=== PATIENT | female | born 1990 | race Two or more races ===

== ENCOUNTER 2024-01-03 09:08 | Outpatient (CLI) | payer OTHER | END 2024-01-03 09:09 | disposition home or self-care (01) | LOC: PRENATAL 09:08 | PROVIDERS: ATTEND Obstetrics & Gynecology Maternal & Fetal Medicine | DX: O36.80X0 Pregnancy with inconclusive fetal viability, not applicable or unspecified (principal); Z36.82 Encounter for antenatal screening for nuchal translucency; Z36.9 Encounter for antenatal screening, unspecified; Z14.8 Genetic carrier of other disease; O34.219 Maternal care for unspecified type scar from previous cesarean delivery; O09.529 Supervision of elderly multigravida, unspecified trimester; Z3A.12 12 weeks gestation of pregnancy ==

== ENCOUNTER 2024-03-02 11:11 | Outpatient (CLI) | payer OTHER | END 2024-03-02 11:14 | disposition home or self-care (01) | LOC: PRENATAL 11:11 | PROVIDERS: ATTEND Obstetrics & Gynecology Maternal & Fetal Medicine | DX: Z76.1 Encounter for health supervision and care of foundling (principal) ==